=== PATIENT | male | born 1985 | race Caucasian/White ===

== ENCOUNTER 2023-05-13 12:33 | Outpatient (AMB) | payer OTHER, SELFPAY ==
--- NOTE | 2023-05-13 12:34 | AM.OFFWIN_ITS ---
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 Foot pain/Purple under Intake Note: pt is here for c/o right foot, purple underneath foot Patient Tobacco Use Status: Never used Tobacco Allergies No Known Allergies Allergy (Verified 05/13/23 12:34) Do you need a note to return to daycare/school/sports/work: Yes HPI HPI Comments History of Present Illness Details Tuesday works for [employer] Walking through snow with non-water proof boots He said his shoes and socks were very wet When he got home + red feet and hurt a lot He put his feet in hot water with some relief He felt his feet were purple in color He went to ER last night and LWBS Rt foot worse than left He said felt fine this am upon waking but it was eorse after moving around 8/10 with weight bearing He doesnt notice swelling He tried Tylenol 500mg yesterday He said there was numbness but none today He said pain with closing R toes in flexion No pain up legs or in back changed from chronic disk herniation with workman comp injury in the past On gabapentin for chronic back pain every other day. He said not on flexeril daily anymore He said he is back to work but only at 25lbs for workman comp; he said he has lost communication with current workman comp case Previous saw [facility] for back [facility] Patient Tobacco Use Status: Never used Tobacco Review of Systems Const Denies body aches, Denies chills, Denies fever(s) and Denies frequent falls Card Denies chest pain and Denies dyspnea Resp Denies dyspnea Musc Reports myalgias (chronic back pain. + feet pain Rt>Lt), Denies numbness and Denies tingling Skin/Breast Reports change in pigmentation (felt like purple/red discoloration bottom of R foot.) Neuro Denies frequent falls, Denies numbness, Denies tingling and Denies paresthesias (felt previously but not today) Physical Exam Vital Signs: Last Vital Signs Temp 98.2 F 05/13/23 12:39 Pulse 83 11/24/23 12:39 BP 130/80 05/13/23 12:39 Pulse Ox 98 05/13/23 12:39 BMI result Body Mass Index 31.9 General: Non-toxic, NAD. Speaking full sentences. Skin: Warm dry throughout. No discoloration to dorsal aspect bilateral feet, ankles of lower legs Bilateral plantar aspects free of FB or puncture. Slight erythema to traced area plantar aspect R foot without significant tenderness to palpation, warmth, induration. No drainage or opening. Respiratory: No respiratory distress Cardiac: RRR. No murmur. DP pulse intact bilaterally. Cap refill < 2 seconds all digits on feet. MSK: Full ROM extremities. + full ROM digits on feet with flexion/extension. No ROM deficit. Neurology: A/O. No aphasia or facial droop. Gait without abnormality out of examination room Psych: Good mood and affect Assessment & Plan Assessment & Plan (1) Pain in both feet: Code(s): M79.671 - Pain in right foot; M79.672 - Pain in left foot Plan Patient seen and evaluated No vascular deficit on exam No significant erythema. No necrosis noted. Discussed elevation, keep dry PCP and workman comp follow up Go to ED with any numbness, abnormal gait, skin color changes, fever etc Pt expressed verbal understanding and no additional questions at time of D/C Coding Level of Care Code New Pt Level 3 (84876) Diagnoses Pain in both feet M79.671; M79.672
[2023-05-13 12:39] VITALS: BP 130/80; PULSE 83; TEMP 36.8; O2SAT 98; BMI 31.9
== END 2023-05-13 12:54 | disposition home or self-care (01) ==
PROVIDERS: PCP Family Medicine; Visit Provider Physician Assistant
DX: M79.671 Pain in right foot (principal); M79.672 Pain in left foot
CPT/HCPCS: 99203